=== PATIENT | female | born 1970 | race Caucasian/White ===

== ENCOUNTER 2021-03-03 18:34 | Emergency (ER) | payer MEDICAID ==
[2021-03-03 18:58] VITALS: PULSE 110
[2021-03-03] MEDS ORDERED: Sodium Chloride 0.9% 10 ML Syringe FLUSH PRN (19:11)
[2021-03-03] MEDS ORDERED: Ondansetron 4 MG/2 ML SDV IVPUSH ONE (19:11)
[2021-03-03] MEDS ORDERED: Ketorolac 30 MG/ML SDV IVPUSH ONE (19:18)
--- NOTE | 2021-03-03 19:20 | EDM.PDOC ---
ED HPI GENERAL MEDICAL PROBLEM - General Chief Complaint: Respiratory Problem Stated Complaint: SOB Time Seen by Provider: 03/03/21 19:03 Source of Information: Reports: Patient, RN Notes Reviewed History Limitations: Reports: No Limitations - History of Present Illness INITIAL COMMENTS - FREE TEXT/NARRATIVE: Patient is a 51-year-old female who presents to the ER for her respiratory illness. States that this started yesterday. She states she was not able to get much sleep last night due to the coughing and discomfort. Has been having fevers, dry intermittent cough, nausea and vomiting and diarrhea. States she does have Phenergan at home and did try this but it did not seem to help much at all. Has been using Tylenol ibuprofen for the fevers. Had tried eating saltin es earlier today but nothing wants to stay down. States she is unvaccinated for COVID-19 but was going to get her vaccination this week . Patient thinks she has not been around anyone that is been sick. Patient carries a history of elevated blood pressure, and states she had a "virus in her heart" a few years back. abdomen Pain Score (Numeric/FACES): 4 - Related Data Allergies Allergy/AdvReac Type Severity Reaction Status Date / Time No Known Allergies Allergy Verified 03/03/21 18:58 Home Meds: Home Meds traMADol [Ultram] 50 mg PO BID 06/11/15 [History] Control 1 tab PO DAILY 07/07/15 [History] Cyclobenzaprine [Flexeril] 10 mg PO TID PRN #30 tablet 07/07/15 [Rx] oxyCODONE 5 mg PO Q4H PRN #30 tablet 07/07/15 [Rx] Amphetamine Sulfate 10 mg PO 12/20/19 [History] Escitalopram [Lexapro] 20 mg PO DAILY 12/20/19 [History] Gabapentin [Neurontin] 100 mg PO 12/20/19 [History] Propranolol HCl [Propranolol HCl ER] 20 mg PO TID 12/20/19 [History] buPROPion HCL [Bupropion HCl ER] 150 mg PO 12/20/19 [History] Past Medical History Cardiovascular History: Reports: Heart Failure Other Cardiovascular History: 3 years ago caused by virus Musculoskeletal History: Reports: Other (See Below) Other Musculoskeletal History: Bunion to left foot. - Past Surgical History HEENT Surgical History: Reports: Tonsillectomy GI Surgical History: Reports: Appendectomy Female Surgical History: Reports: Section Social & Family History - Family History Cardiac: Reports: [place] Respiratory: Reports: Asthma, Other (See Below) Other Respiratory Family Hisory: emphysema - Tobacco Use Tobacco Use Status *Q: Never Tobacco User - Recreational Drug Use Recreational Drug Use: No - Living Situation & Occupation Living situation: Reports: , with Family ED ROS GENERAL - Review of Systems Review Of Systems: Comprehensive ROS is negative, except as noted in HPI. ED EXAM, GENERAL - Physical Exam Exam: See Below Exam Limited By: No Limitations General Appearance: Alert, WD/WN, No Apparent Distress (Ill-appearing female, dry intermittent cough, patient is wrapped up in a blanket in the room.) Respiratory/Chest: No Respiratory Distress, Lungs Clear, Normal Breath Sounds, No Accessory Muscle Use, Chest Non-Tender Cardiovascular: Normal Peripheral Pulses, Regular Rate, Rhythm, No Edema GI/Abdominal: Normal Bowel Sounds, Soft, Non-Tender, No Distention, No Mass Extremities: Normal Inspection, Normal Capillary Refill Neurological: Alert, Oriented, Normal Cognition, No Motor/Sensory Deficits Psychiatric: Normal Affect, Normal Mood Skin Exam: Warm, Dry, Intact, Normal Color, No Rash Course - Vital Signs Last Recorded V/S: Last Vital Signs Temp 101.7 F H 03/03/21 18:56 Pulse 110 H 03/03/21 18:56 Resp 20 03/03/21 20:57 BP 116/69 03/03/21 20:57 Pulse Ox 96 03/03/21 20:57 - Orders/Labs/Meds Orders: Active Orders 24 hr Category Date Time Status Peripheral IV Care [RC] . DIRECTED Care 03/03/21 19:11 Ordered Vital Signs [RC] Q15M Care 03/03/21 20:12 Ordered Chest 1V Frontal [CR] Stat Exams 03/03/21 19:11 Ordered EPINEPHrine [Adrenalin] Med 03/03/21 20:11 Active 0.3 mg IM ASDIRECTED PRN Famotidine [Pepcid] Med 03/03/21 20:11 Active 20 mg IVPUSH ASDIRECTED PRN Sodium Chloride 0.9% [Saline Flush] Med 03/03/21 19:11 Active 10 ml FLUSH ASDIRECTED PRN Sodium Chloride 0.9% [Saline Flush] Med 03/03/21 20:15 Active 30 ml FLUSH ASDIRECTED diphenhydrAMINE [Benadryl] Med 03/03/21 20:11 Active 50 mg IVPUSH ASDIRECTED PRN methylPREDNISolone Sod Succ [Solu-MEDROL] Med 03/03/21 20:11 Active 125 mg IVPUSH ASDIRECTED PRN Isolation [COMM] Routine Oth 03/03/21 19:16 Ordered Peripheral IV Insertion Adult [OM.PC] Routine Oth 03/03/21 19:11 Ordered Medication Orders Diphenhydramine HCl (Diphenhydramine 50 Mg/Ml Sdv) 50 mg IVPUSH ASDIRECTED PRN PRN Reason: hypersensitivity reaction Epinephrine HCl (Epinephrine 1 Mg/Ml Sdv) 0.3 mg IM ASDIRECTED PRN PRN Reason: hypersensitivity reaction Famotidine (Famotidine 20 Mg/2 Ml Sdv) 20 mg IVPUSH ASDIRECTED PRN PRN Reason: hypersensitivity reaction Methylprednisolone Sodium Succinate (Methylprednisolone Sodium Succinate 125 Mg/2 Ml Sdv) 125 mg IVPUSH ASDIRECTED PRN PRN Reason: hypersensitivity reaction Sodium Chloride (Sodium Chloride 0.9% 10 Ml Syringe) 10 ml FLUSH ASDIRECTED PRN PRN Reason: Keep Vein Open Last Admin: 03/03/21 20:10 Dose: 10 ml Documented by: DAVON Sodium Chloride (Sodium Chloride 0.9% 10 Ml Syringe) 30 ml FLUSH ASDIRECTED [facility] Labs: Laboratory Tests 03/03/21 03/03/21 03/03/21 Range/Units 18:51 19:46 19:46 WBC 4.85 (3.98-10.04) K/mm3 RBC 4.46 (3.98-5.22) M/mm3 Hgb 13.7 (11.2-15.7) gm/dl Hct 41.1 (34.1-44.9) % MCV 92.2 (79.4-94.8) fl MCH 30.7 (25.6-32.2) pg MCHC 33.3 (32.2-35.5) g/dl RDW Std Deviation 43.7 (36.4-46.3) fL Plt Count 309 D (182-369) K/mm3 MPV 8.4 L (9.4-12.3) fl Neut % (Auto) 63.1 (34.0-71.1) % Lymph % (Auto) 18.4 L (19.3-51.7) % Levy % (Auto) 17.5 H (4.7-12.5) % Eos % (Auto) 0.2 L (0.7-5.8) Baso % (Auto) 0.6 (0.1-1.2) % Neut # (Auto) 3.06 (1.56-6.13) K/mm3 Lymph # (Auto) 0.89 L (1.18-3.74) K/mm3 Levy # (Auto) 0.85 H (0.24-0.36) K/mm3 Eos # (Auto) 0.01 L (0.04-0.36) K/mm3 Baso # (Auto) 0.03 (0.01-0.08) K/mm3 Sodium (136-145) mEq/L Potassium (3.5-5.1) mEq/L Chloride (98-107) mEq/L Carbon Dioxide (21-32) mEq/L Anion Gap (5-15) BUN (7-18) mg/dL Creatinine (0.55-1.02) mg/dL Est Cr Clr Drug Dosing mL/min Estimated GFR (MDRD) (>60) mL/min BUN/Creatinine Ratio (14-18) Glucose (70-99) mg/dL Calcium (8.5-10.1) mg/dL Magnesium (1.8-2.4) mg/dL Total Bilirubin (0.2-1.0) mg/dL AST (15-37) U/L ALT (14-59) U/L Alkaline Phosphatase (46-116) U/L C-Reactive Protein 3.4 H* (<1.0) mg/dL Total Protein (6.4-8.2) g/dl Albumin (3.4-5.0) g/dl Globulin gm/dL Albumin/Globulin Ratio (1-2) SARS-CoV-2 RNA (JUAN CARLOS) Positive H (NEGATIVE) 03/03/21 Range/Units 19:46 WBC (3.98-10.04) K/mm3 RBC (3.98-5.22) M/mm3 Hgb (11.2-15.7) gm/dl Hct (34.1-44.9) % MCV (79.4-94.8) fl MCH (25.6-32.2) pg MCHC (32.2-35.5) g/dl RDW Std Deviation (36.4-46.3) fL Plt Count (182-369) K/mm3 MPV (9.4-12.3) fl Neut % (Auto) (34.0-71.1) % Lymph % (Auto) (19.3-51.7) % Levy % (Auto) (4.7-12.5) % Eos % (Auto) (0.7-5.8) Baso % (Auto) (0.1-1.2) % Neut # (Auto) (1.56-6.13) K/mm3 Lymph # (Auto) (1.18-3.74) K/mm3 Levy # (Auto) (0.24-0.36) K/mm3 Eos # (Auto) (0.04-0.36) K/mm3 Baso # (Auto) (0.01-0.08) K/mm3 Sodium 139 (136-145) mEq/L Potassium 3.3 L (3.5-5.1) mEq/L Chloride 102 (98-107) mEq/L Carbon Dioxide 27 (21-32) mEq/L Anion Gap 13.3 (5-15) BUN 8 (7-18) mg/dL Creatinine 1.1 H (0.55-1.02) mg/dL Est Cr Clr Drug Dosing 57.91 mL/min Estimated GFR (MDRD) 53 (>60) mL/min BUN/Creatinine Ratio 7.3 L (14-18) Glucose 92 (70-99) mg/dL Calcium 7.9 L (8.5-10.1) mg/dL Magnesium 1.7 L (1.8-2.4) mg/dL Total Bilirubin 0.2 (0.2-1.0) mg/dL AST 30 (15-37) U/L ALT 37 (14-59) U/L Alkaline Phosphatase 77 (46-116) U/L C-Reactive Protein (<1.0) mg/dL Total Protein 6.6 (6.4-8.2) g/dl Albumin 3.3 L (3.4-5.0) g/dl Globulin 3.3 gm/dL Albumin/Globulin Ratio 1.0 (1-2) SARS-CoV-2 RNA (JUAN CARLOS) (NEGATIVE) Meds: Medications Generic Name Dose Route Start Last Admin Trade Name Freq PRN Reason Stop Dose Admin Diphenhydramine HCl 50 mg 03/03/21 20:11 Diphenhydramine 50 Mg/Ml Sdv IVPUSH ASDIRECTED PRN hypersensitivity reaction Epinephrine HCl 0.3 mg 03/03/21 20:11 Epinephrine 1 Mg/Ml Sdv IM ASDIRECTED PRN hypersensitivity reaction Famotidine 20 mg 03/03/21 20:11 Famotidine 20 Mg/2 Ml Sdv IVPUSH ASDIRECTED PRN hypersensitivity reaction Methylprednisolone Sodium Succinate 125 mg 03/03/21 20:11 Methylprednisolone Sodium Succinate 125 Mg/2 Ml Sdv IVPUSH ASDIRECTED PRN hypersensitivity reaction Sodium Chloride 10 ml 03/03/21 19:11 03/03/21 20:10 Sodium Chloride 0.9% 10 Ml Syringe FLUSH 10 ml ASDIRECTED PRN Administration Keep Vein Open Sodium Chloride 30 ml 03/03/21 20:15 Sodium Chloride 0.9% 10 Ml Syringe FLUSH ASDIRECTED CRISTHIAN Discontinued Medications Generic Name Dose Route Start Last Admin Trade Name Isac PRN Reason Stop Dose Admin CASIRIVIMAB/IMDEVIMAB 10 ml/ 110 mls @ 220 mls/hr 03/03/21 20:11 03/03/21 20:44 Sodium Chloride IV 03/03/21 20:40 220 mls/hr ONETIME ONE Administration Ketorolac Tromethamine 30 mg 03/03/21 19:18 03/03/21 20:09 Ketorolac 30 Mg/Ml Sdv IVPUSH 03/03/21 19:19 30 mg ONETIME ONE Administration Ondansetron HCl 4 mg 03/03/21 19:11 03/03/21 20:08 Ondansetron 4 Mg/2 Ml Sdv IVPUSH 03/03/21 19:12 4 mg ONETIME ONE Administration - Re-Assessments/Exams Free Text/Narrative Re-Assessment/Exam: 03/03/21 19:19 Patient presents to the ER for evaluation of her ongoing respiratory illness. We will go ahead and get IV started, Covid swab was obtained at the time of triage. We will get a chest x-ray and some basic labs done with some IV fluids and nausea meds and some Toradol for initial management. 03/03/21 20:11 Patient is Covid positive. I spoke with the patient to provide information about monoclonal antibody treatment. I offered them the "Patient and caregiver [facility] monoclonal antibody fact sheet" to read and review. I stated that the drug has been approved by an emergency use authorization (EUA) process and has not been fully FDA reviewed or approved. The patient meets the EUA requirements. I discussed there are other potential treatment options that are currently not FDA approved to treat COVID-19. I did offer an opportunity to ask questions and all questions were answered. The patient voiced understanding and agreed to proceed with the treatment. 03/03/21 21:01 The patient's metabolic panel, and CBC are essentially unremarkable, she has some mild hypokalemia, mild hypomagnesemia, but this is likely dietary. CRP is elevated at 3.4. Patient should be done with her Regeneron at about 9:15 PM we can get her going home around 10:15. Departure - Departure Time of Disposition: 21:02 Disposition: Home, Self-Care 01 Condition: Good Clinical Impression: COVID-19 - Discharge Information *PRESCRIPTION DRUG MONITORING PROGRAM REVIEWED*: No *COPY OF PRESCRIPTION DRUG MONITORING REPORT IN PATIENT REBECCA: No Instructions: 10 Things You Can Do to Manage Your COVID-19 Symptoms at Home - [facility] (11/09/2020) Referrals: Ruddy Warner MD [Primary Care Provider] - Forms: ED Department Discharge Additional Instructions: You were seen in the ER today for ongoing and/or worsening respiratory symptoms. Your chest x-ray showed no signs of pneumonia at this time. Your oxygen levels were great at 94% on room air. You were given IV monoclonal antibody therapy at today's visit, this medication is thought to work by making you a little less sick, and helps to decrease the length of time that you are sick. Please try to increase your oral fluid intake, and eat multiple small meals throughout the day, to keep yourself healthy. You need to keep yourself nourished in order to fight off this disease. You can try a liquid diet like gatorade/powerade as well to get your electrolytes. You may take 500 mg Tylenol every hours 6 hours for pain/fever relief. Do not exceed 4000 mg Tylenol in a 24-hour time span. However, running a fever is your body's natural response to illness, and it allows the body to develop antibodies to disease, we are recommending trying to limit the use of Tylenol as much as possible to allow your body's natural immune response. Recommend you obtain a pulse oximeter and monitor your oxygen levels at home, you should place the monitor on your finger, and sit in a calm, quiet position for a few minutes and then record the number that is on the screen. If this consistently below 90% on room air without movement, this would be cause for concern to come back to the hospital for further management of your COVID-19 disease. Please follow all guidance set forth from [facility], regarding isolation purposes for your disease process. General isolation times are 10 days from when you started being symptomatic. Sepsis Event Note (ED) - Evaluation Sepsis Screening Result: No Definite Risk - Focused Exam Vital Signs: Vital Signs Temp Pulse Resp BP Pulse Ox 03/03/21 20:57 20 116/69 96 03/03/21 18:56 101.7 F H 110 H 18 121/72 95 - My Orders Last 24 Hours: My Active Orders 03/03/21 19:11 Peripheral IV Care [RC] . DIRECTED Chest 1V Frontal [CR] Stat Sodium Chloride 0.9% [Saline Flush] 10 ml FLUSH ASDIRECTED PRN Peripheral IV Insertion Adult [OM.PC] Routine 03/03/21 19:16 Isolation [COMM] Routine 03/03/21 20:11 EPINEPHrine [Adrenalin] 0.3 mg IM ASDIRECTED PRN Famotidine [Pepcid] 20 mg IVPUSH ASDIRECTED PRN diphenhydrAMINE [Benadryl] 50 mg IVPUSH ASDIRECTED PRN methylPREDNISolone Sod Succ [Solu-MEDROL] 125 mg IVPUSH ASDIRECTED PRN 03/03/21 20:12 Vital Signs [RC] Q15M 03/03/21 20:15 Sodium Chloride 0.9% [Saline Flush] 30 ml FLUSH ASDIRECTED - Assessment/Plan Last 24 Hours: My Active Orders 03/03/21 19:11 Peripheral IV Care [RC] . DIRECTED Chest 1V Frontal [CR] Stat Sodium Chloride 0.9% [Saline Flush] 10 ml FLUSH ASDIRECTED PRN Peripheral IV Insertion Adult [OM.PC] Routine 03/03/21 19:16 Isolation [COMM] Routine 03/03/21 20:11 EPINEPHrine [Adrenalin] 0.3 mg IM ASDIRECTED PRN Famotidine [Pepcid] 20 mg IVPUSH ASDIRECTED PRN diphenhydrAMINE [Benadryl] 50 mg IVPUSH ASDIRECTED PRN methylPREDNISolone Sod Succ [Solu-MEDROL] 125 mg IVPUSH ASDIRECTED PRN 03/03/21 20:12 Vital Signs [RC] Q15M 03/03/21 20:15 Sodium Chloride 0.9% [Saline Flush] 30 ml FLUSH ASDIRECTED
[2021-03-03] MEDS ORDERED: methylPREDNISolone Sodium Succinate 125 MG/2 ML SDV IVPUSH PRN (20:11)
[2021-03-03] MEDS ORDERED: Famotidine 20 MG/2 ML SDV IVPUSH PRN (20:11)
[2021-03-03] MEDS ORDERED: diphenhydrAMINE 50 MG/ML SDV IVPUSH PRN (20:11)
[2021-03-03] MEDS ORDERED: EPINEPHrine 1 MG/ML SDV IM PRN (20:11)
[2021-03-03] MEDS ORDERED: Sodium Chloride 0.9% 10 ML Syringe FLUSH SCH (20:15)
[2021-03-03 20:59] VITALS: BP 116/69
--- NOTE | 2021-03-04 06:44 | CR ---
Chest: Frontal view of the chest was obtained. Comparison: Prior chest x-ray of 07/07/15. Heart size and mediastinum are normal. Lungs are clear with no acute parenchymal change. No acute osseous finding is appreciated. Impression: 1. Nothing acute is seen on frontal chest x-ray. Diagnostic code #1
== END 2021-03-03 22:15 | disposition home or self-care (01) ==
LOC: JD.ED 18:34
DX: U07.1 COVID-19 (principal)
CPT/HCPCS: 36415; 71045; 80053; 83735; 85025; 86140; 87635; 87804; 96374; 96375; 99284; J1885; J2405; M0243; Q0243; 99285; U0002